=== PATIENT | female | born 2000 | race Caucasian/White ===

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

== ENCOUNTER 2020-02-04 20:01 | Observation (INO) | payer OTHER, SELFPAY ==
--- NOTE | 2020-02-04 20:01 | OBADM ---
This patient, Nadeen Jules, admitted to the OB room OB Post 116 for observation. Patient/family oriented to hospital policies and general routines including ID bracelet, bed and alarms, visiting hours, pain management, procedures, bathroom and other care routines, personal items, smoking policy, room service/diet, and visiting hours. Patient/Family are encouraged to report perceived risks to care and to ask questions if they do not understand what they are told or what they should do.
[2020-02-04 20:18] VITALS: BP 120/75; PULSE 117; RESP 20; TEMP 36.6
[2020-02-04 20:43] VITALS: BMI 34.2
[2020-02-04 21:01] LABS: Add Urine Microscopic? YES; Appearance Urine Cloudy (Clear); Bacteria Urine Trace /hpf; Bilirubin Urine Negative (Negative); Blood Urine Negative (Negative); Color Urine Yellow (Yellow); Glucose Urine UA Negative (Negative); Ketones Urine 1+ mg/dL (Negative); Leukocyte Esterase Ur 2+ LEU/UL (NEGATIVE); Mucus Urine Few /lpf; Nitrate Urine Negative (Negative); Protein Urine 1+ mg/dL (Negative); Specific Grav Ur 1.018 (1.001-1.035); Squamous Epithelial Cell Urine Many /hpf (Few); Urobilinogen Urine Negative mg/dL (<2.0); WBC Urine 51-75 /hpf (0-3)
[2020-02-04] MEDS: SODIUM CHLORIDE 0.9% IV 1,000 ML 999 ML IV CONT (22:28)
[2020-02-04 22:32] LABS: Amphetamine Screen Urine Negative (Negative); Barbiturate Screen Urine Negative (Negative); Benzodiazepines Screen Urine Negative (Negative); Cannabinoid Screen Urine Negative (Negative); Cocaine Screen Urine Negative (Negative); Methadone Screen Urine Negative (Negative); Opiate Screen Urine Negative (Negative); Phencyclidine Screen Urine Negative (Negative)
[2020-02-04 23:45] VITALS: BP 123/63; PULSE 77; TEMP 36.4
--- NOTE | 2020-02-05 03:10 | PM.OBTRLD ---
OB - Triage/Final Diagnosis Visit Information Reason for evaluation: threatened labor Evaluation Laboratory results: Laboratory Tests 02/04/20 02/04/20 20:49 20:49 Urine Color Yellow Urine Appearance Cloudy H Urine pH 6.0 Ur Specific Child[place] 1.018 Urine Protein 1+ H Urine Glucose (UA) Negative Urine Ketones 1+ H Ur Blood (Man) Negative Urine Nitrate Negative Urine Bilirubin Negative Urine Urobilinogen Negative Ur Leukocyte Esterase 2+ H Urine RBC 3-5 H Urine WBC 51-75 H Ur Squamous Epith Cells Many H Urine Bacteria Trace Urine Mucus Few H Urine Opiates Screen Negative Urine Methadone Screen Negative Ur Barbiturates Screen Negative Ur Phencyclidine Scrn Negative Ur Amphetamine Screen Negative U Benzodiazepines Scrn Negative Urine Cocaine Screen Negative U Cannabinoids Screen Negative Vital signs: Vital Signs - 24 hr 02/04/20 20:18 02/04/20 23:45 Temperature 97.8 F 97.6 F Pulse Rate 117 H 77 Respiratory Rate 20 Blood Pressure 120/75 123/63
[2020-02-05 03:26] VITALS: BP 114/53; PULSE 90; TEMP 36.6
[2020-02-05 07:42] VITALS: BP 87/55; PULSE 78
[2020-02-05 07:43] VITALS: BP 88/45; PULSE 79
[2020-02-05 07:44] VITALS: TEMP 36.3
[2020-02-05 08:01] VITALS: BP 107/52; PULSE 71
--- NOTE | 2020-02-05 08:52 | PC.NURSE ---
0745-Pt given discharge instructions. 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 Explained again that if she wants Dr.Dalla Singleton to deliver her, she needs to see him in the office so he can review her records and assess the pt. She stated again she will be seeing the other .
== END 2020-02-05 08:01 | disposition home or self-care (01) ==
PROVIDERS: Admitting Provider Obstetrics & Gynecology; Visit Provider Obstetrics & Gynecology
DX: O47.9 False labor, unspecified (principal); Z3A.00 Weeks of gestation of pregnancy not specified
CPT/HCPCS: 80307; 81001; 87086; 87088; G0378; G0379; J7030

== ENCOUNTER 2020-02-21 14:15 | Outpatient (CLI) | payer OTHER, SELFPAY ==
[2020-02-21 23:56] LABS: SARS-CoV-2 RNA PCR Negative
== END 2020-02-21 14:16 | disposition home or self-care (01) ==
DX: Z20.828 Contact with and (suspected) exposure to other viral communicable diseases (principal)
CPT/HCPCS: 87635; C9803; U0003

== ENCOUNTER 2020-02-28 03:11 | Emergency (ER) | payer OTHER, SELFPAY ==
[2020-02-28] VITALS (7 sets, daily range): BP systolic 102–138; BP diastolic 59–78; PULSE 63–107; RESP 19–24; TEMP 36.6; O2SAT 97–99
--- NOTE | ~2020-02-28 | CT_ITS ---
EXAMINATION: CTA chest PE protocol DATE: 02/28/2020 06:13 INDICATION: Chest pain, dyspnea. Recent section. TECHNIQUE: Computed tomography angiography (CTA) of the chest was performed with 100 mL Omnipaque-350 intravenous contrast timed to evaluate the pulmonary arteries. Coronal maximum intensity projection 3D-reconstructions were created by the technologist. Automated exposure control and iterative reconst ruction technique were employed. Exam dose: 672.94 mGy-cm total exam DLP. COMPARISON: 02/28/2020 CT pulmonary scan 02/28/2020 portable AP chest at 0352 hours FINDINGS: There is moderate opacification of the pulmonary arteries and no evidence of pulmonary embo lism. No thoracic aortic aneurysm or dissection. Heart size is within normal range. No pericardial or pleural effusion. No hilar or mediastinal mass lesion or lymphadenopathy. No pulmonary infiltrate or consolidation. IMPRESSION: No evidence of pulmonary embolism Reviewed, dictated and finalized at Location [facility]. Reviewed, dictated and finalized at location A.
--- NOTE | ~2020-02-28 | CT_ITS ---
EXAMINATION: CTA chest PE protocol DATE: 02/28/2020 04:41 INDICATION: Shortness of breath. Chest and neck pain. TECHNIQUE: Computed tomography angiography (CTA) of the chest was performed with 100 mL Omnipaque-350 intravenous contrast timed to evaluate the pulmonary arteries. Coronal maximum intensity projection 3D-reconstructions were created by the technologist. Automated exposure control and iterative reconst ruction technique were employed. Exam dose: 658.44 mGy-cm total exam DLP. COMPARISON: 02/28/2020 portable AP chest at 0352 hours FINDINGS: Evaluation for pulmonary emboli is limited due to streak artifact, suboptimal opacification and respiratory motion. No large or central pulmonary emboli are visualized. Distal ulnar arteries a re not optimally evaluated. No thoracic aortic aneurysm or dissection is evident. No hilar or mediastinal mass lesion or lymphade nopathy. Normal heart size. No pericardial or pleural effusion. Small sliding hiatal hernia. No pulmonary infiltrate or consolidation or pulmonary mass lesion. Minimal dependent bilateral lower lobe atelectasis. Included skeletal structures are unremarkable. IMPRESSION: Limited examination; no large or central pulmonary embolus is identified Reviewed, dictated and finalized at Location [facility]. Reviewed, dictated and finalized at location A. IMPRESSION: Limited examination; no large or central pulmonary embolus is iden tified
--- NOTE | ~2020-02-28 | XR_ITS ---
XR chest 1V portable DATE: 02/28/2020 03:50 INDICATION: Shortness of breath, dyspnea TECHNIQUE: Portable AP chest on 02/28/2020 at 0352 hours COMPARISON: None FINDINGS: Normal heart size. No hilar or mediastinal enlargement. No pulmonary infiltrate or consolid ation, pleural effusion or pulmonary vascular congestion or pneumothorax. Included skeletal structures are unremarkable. IMPRESSION: No active cardiopulmonary disease Reviewed, dictated and finalized at location A.
--- NOTE | 2020-02-28 03:13 | ED.GENADULT ---
HPI - General Adult General Chief complaint: Shortness of Breath/Dyspnea Stated complaint: post op pain Time Seen by Provider: 02/28/20 03:12 Source: patient Mode of arrival: wheelchair Limitations: no limitations History of Present Illness HPI narrative: Patient is a 19-year-old female , 4 days from section at [facility] in [facility], presenting for evaluation of chest pain and shortness of breath. Patient states that this evening, she has developed gradual worsening chest pain which radiates into her neck. She is reporting shortness of breath without fever or cough. No rhinorrhea. No loss of sense of taste or smell. No myalgias. Patient reports some generalized abdominal soreness, but no severe abdominal pain. No nausea or vomiting. 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 Patient had a normal postoperative recovery from section, no complications with this per the patient. Patient denies any heavy vaginal bleeding, dysuria. Related Data Home Medications Medication Instructions Recorded Confirmed acetaminophen 1,000 mg PO Q6H PRN 02/28/20 ferrous sulfate 325 mg PO BID 02/28/20 ketorolac 10 mg PO Q6H 02/28/20 morphine 15 mg PO Q4H PRN 02/28/20 sennosides-docusate sodium [Stool 2 tab-cap PO BID PRN 02/28/20 Softener-Stimulant Laxat] Allergies Allergy/AdvReac Type Severity Reaction Status Date / Time sertraline AdvReac Severe Other Verified 02/28/20 03:55 Review of Systems Review of Systems: Narrative: CONSTITUTIONAL: Denies fever, chills EYES: Denies visual changes ENT: Denies rhinorrhea, congestion, sore throat, or otalgia. CARDIOVASCULAR: Reports chest pain RESPIRATORY: Reporting dyspnea GASTROINTESTINAL: Denies abdominal pain, nausea, vomiting, or diarrhea. GENITOURINARY: Denies dysuria or hematuria. SKIN: Denies rash or itching. MUSCULOSKELETAL: Denies back pain, reports neck pain NEUROLOGIC: Denies headache, numbness, or weakness. [facility] Past Medical History Medical History (Updated 02/28/20 @ 07:08 by Hina Houser MD) Surgical History Surgical History (Updated 02/28/20 @ 03:23 by Hina Houser MD) H/O section Family History Family History (Updated 02/08/20 @ 14:34 by Arlette Putnam RN) Other Unknown family medical history Social History Social History (Updated 02/28/20 @ 03:23 by Hina Houser MD) Smoking status: Never smoker Substance use: former Living arrangements: with family Gender identity (if verbalized by the patient): Female Exam Narrative: Exam Narrative: GENERAL: Awake, alert, anxious appearing HEAD: Normocephalic, atraumatic. EYES: PERRLA and EOMI. ENT: Nares clear, no rhinorrhea or epistaxis. Mucous membranes moist. NECK: Supple. CHEST: Tachypneic, lung sounds are clear bilaterally without crackles, wheezing, no use of accessory muscles to breathe, no chest wall tenderness HEART: Tachycardic rate, sinus rhythm ABDOMEN:Non distended, surgical incision site in the lower abdomen clean, dry, intact, no discharge, no cellulitic changes, no erythema or warmth EXTREMITIES: Normal range of motion. Bilateral nonpitting edema to the shins SKIN: Pale, warm, dry, no rash. NEURO:No focal deficits. Alert and oriented x3 Course Vital Signs Vital signs: Vital Signs Temperature 36.6 C 02/28/20 03:16 Pulse Rate 107 H 02/28/20 03:16 Respiratory Rate 24 H 02/28/20 03:16 Blood Pressure 138/78 02/28/20 03:16 Pulse Oximetry 99 02/28/20 03:16 Temperature 36.6 C 02/28/20 03:16 Pulse Rate 63 02/28/20 06:30 Respiratory Rate 20 02/28/20 06:30 Blood Pressure 102/63 02/28/20 06:30 Pulse Oximetry 97 02/28/20 06:30 Medical Decision Making MDM Narrative Medical decision making narrative: Patient presented
--- NOTE | 2020-02-28 03:19 | ECG_ITS ---
Measurements Intervals [place] Rate: 83 P: 37 [place]: 138 QRS: 37 QRSD: 78 T: 4 QT: 328 QTc: 387 Interpretive Statements SINUS RHYTHM WITH SINUS ARRHYTHMIA BASELINE ARTIFACT- I, II, V2 NORMAL ECG Electronically Signed On 02-28-2020 6:53:45 CDT by Bernabe Rowell D.O.
[2020-02-28 03:27] LABS: Glucose Point of Care 76 (65-105)
[2020-02-28 03:40] LABS: Basophils Percent Auto 0.2 % (0.2-1.2); Eosinophils Absolute Auto 0.1 K/mm3 (0-0.3); Eosinophils Percent Auto 1.4 % (0-4.4); Hematocrit 28.3 % (37.0-47.0); Hemoglobin 9.5 g/dL (12.0-15.0); Immature Granulocyte Absolute 0.04 K/mm3 (0.00-0.031); Immature Granulocyte Percent A 0.4 % (0-0.5); Lymphocytes Absolute Auto 1.82 K/mm3 (0.9-3.2); Mean Corpuscular HGB Conc 33.6 g/dl (32-36); Mean Corpuscular Hemoglobin 29.7 pg (26-34); Mean Corpuscular Volume 88.4 fl (80-100); Mean Platelet Volume 10.9 fl (7.4-10.4); Monocytes Absolute Auto 0.8 K/mm3 (0.1-0.6); Monocytes Percent Auto 7.4 % (2.6-8.5); Neutrophils Absolute Auto 7.3 K/mm3 (1.3-6.7); Neutrophils Percent Auto 72.6 % (45.5-73.1); Platelet Count Result 208 k/mm3 (150-375); White Blood Count 10.1 K/mm3 (4.5-10.0)
[2020-02-28 03:40] LABS: Alveolar/Arterial O2 Gradient 3.3 mmHg; Carboxyhemoglobin 0.3 % THb (0-2.0); Device ROOM AIR; Fractional Inspired Oxygen 21 %; HCO3 ABG 17.8 mEq/l (22.0-26.0); Methemoglobin ABG 0.2 %THb (0-1.5); Modified Allen's Test Pass; Oxygen Content ABG 13.5 %vol (16.0-22.0); Oxygen Saturation ABG 98.5 % (95.0-100.0); Oxyhemoglobin 96.7 % THb (90.0-100.0); PCO2 ABG 25.7 mmHg (35.0-45.0); PO2 ABG 115.7 mmHg (80.0-100.0); PO2 FiO2 Ratio Arterial Blood 5.51 %; Reduced Hemoglobin 2.8 %THb (0-5.0); Site Drawn RIGHT RADIAL; Total Hemoglobin 9.8 g/dL (12.0-18.0); pH ABG 7.458 (7.350-7.450)
[2020-02-28] MEDS: ASPIRIN 81 MG CHEWABLE TABLET 324 MG PO (03:42)
[2020-02-28] MEDS: ONDANSETRON INJ 4 MG/2 ML VIAL IV PUSH (03:43)
[2020-02-28] MEDS: SODIUM CHLORIDE 0.9% IV 1,000 ML 999 ML IV CONT (03:48)
[2020-02-28] MEDS: MORPHINE SULFATE (*CRX) 4 MG/ML INJ 2 MG IV PUSH (03:49)
[2020-02-28 03:52] LABS: Alanine Aminotransferase 21 U/L (4-35); Albumin Level 3.3 g/dL (3.7-5.6); Alkaline Phosphatase 148 U/L (45-116); Anion Gap 8 mmol/L (8-16); Aspartate Amino Transferase 36 U/L (14-36); Bilirubin,Total 0.4 mg/dL (0.2-1.3); Blood Urea Nitrogen 10 mg/dL (8-21); Calcium 8.6 mg/dL (8.9-10.7); Carbon Dioxide 24 mmol/L (22-30); Chloride 108 mmol/L (98-107); Estimated CRCL calculation 145 ml/min; Estimated Glomerular Filt Rate > 60; Glucose 76 mg/dL (65-105); Potassium 3.9 mmol/L (3.4-5.0); Sodium 140 mmol/L (134-143); Uric Acid 5.4 mg/dL (3.0-5.9)
[2020-02-28 03:53] LABS: Lactic Acid Reflex 0.9 mmol/L (0.7-2.1); Partial Thromboplastin Time 29.3 SECONDS (22.3-36.8); Prothrombin Time 13.2 Seconds (11.1-14.7)
[2020-02-28 03:56] LABS: D Dimer 2.13 ug/mL (<0.48)
[2020-02-28 04:04] LABS: NT Pro B Type Natriuretic Pept 117 PG/ML (5-100); Troponin I < 0.012 ng/mL (0.000-0.034)
[2020-02-28 06:19] LABS: Add Urine Microscopic? YES; Appearance Urine Cloudy (Clear); Bacteria Urine Trace /hpf; Bilirubin Urine Negative (Negative); Blood Urine 3+ (Negative); Color Urine Yellow (Yellow); Glucose Urine UA Negative (Negative); Ketones Urine Negative (Negative); Leukocyte Esterase Ur 3+ LEU/UL (Negative); Mucus Urine Rare /lpf; Nitrate Urine Negative (Negative); Protein Urine 1+ mg/dL (Negative); RBC Urine 21-50 /hpf (0-2); Squamous Epithelial Cell Urine Many /hpf (Few); Transitional Epi Cells Urine Rare /hpf (None Seen); Urobilinogen Urine Negative mg/dL (<2.0); WBC Urine >75 /hpf
[2020-02-28 06:21] LABS: Specific Grav Ur 1.044 (1.001-1.035)
[2020-02-28 06:59] LABS: Troponin I < 0.012 ng/mL (0.000-0.034)
== END 2020-02-28 07:38 | disposition home or self-care (01) ==
PROVIDERS: Emergency Provider Emergency Medicine; PCP Internal Medicine
DX: O86.20 Urinary tract infection following delivery, unspecified (principal); O90.89 Other complications of the puerperium, not elsewhere classified; R07.89 Other chest pain
CPT/HCPCS: 36415; 36600; 71045; 71275; 80053; 81001; 82375; 82805; 82948; 83050; 83605; 83880; 84484; 84550; 85025; 85380; 85610; 85730; 86850; 86870; 86880; 86900; 86901; 86902; 86905; 86971; 87077; 87086; 87088; 87186; 93005; 96361; 96374; 96375; 99284; A9270; J0131; J2270; J2405; J7030; Q9967

== ENCOUNTER 2020-08-29 17:45 | Outpatient (CLI) | payer OTHER, SELFPAY ==
[2020-08-29 18:26] LABS: Beta HCG Quantitative < 2.39 mIU/ML
== END 2020-08-29 17:46 | disposition home or self-care (01) ==
LOC: ANHLAB 17:49
DX: Z32.00 Encounter for pregnancy test, result unknown (principal)
CPT/HCPCS: 36415; 84702

== ENCOUNTER 2021-08-30 01:16 | Emergency (ER) | payer OTHER, SELFPAY ==
[2021-08-30 01:19] VITALS: BP 149/48; PULSE 110; RESP 16; TEMP 36.2; O2SAT 97
--- NOTE | 2021-08-30 01:45 | ED.URI ---
HPI - URI/Sore Throat General Chief Complaint: Upper Respiratory Infection Stated Complaint: Sore throat, cough Time Seen by Provider: 08/30/21 01:34 Source: patient Mode of arrival: ambulatory Limitations: no limitations History of Present Illness HPI Narrative: 21-year-old female presents today with complaints of sore throat, cough, ear pressure, muffled hearing, sweats, chills that started yesterday. Patient denies using any medication for pain or fever. Patient denies nausea, vomiting, abdominal pain. Patient does endorse sick contact as son is here for similar symptoms. Patient states throat pain is so severe that she is unable to even eat pudding. Related Data Home Medications Medication Instructions Recorded Confirmed acetaminophen 1,000 mg PO Q6H PRN 02/28/20 ferrous sulfate 325 mg PO BID 02/28/20 ketorolac 10 mg PO Q6H 02/28/20 morphine 15 mg PO Q4H PRN 02/28/20 sennosides-docusate sodium [Stool 2 tab-cap PO BID PRN 02/28/20 Softener-Stimulant Laxat] Allergies Allergy/AdvReac Type Severity Reaction Status Date / Time sertraline AdvReac Severe Other Verified 02/28/20 03:55 Review of Systems Review of Systems: CONSTITUTIONAL: Unsure of fever, but endorses chills, and sweats. EYES: Denies visual changes, redness, or discharge. ENT: Sinus drainage, sore throat, muffled hearing. CARDIOVASCULAR: Denies chest pain, palpitations, or edema. RESPIRATORY: Cough, sinus drainage. Denies dyspnea. GASTROINTESTINAL: Denies abdominal pain, nausea, vomiting, or diarrhea. GENITOURINARY: Denies dysuria or hematuria. SKIN: Denies rash or itching. MUSCULOSKELETAL: Denies back pain, joint pain, or myalgia. NEUROLOGIC: Denies headache, numbness, dizziness, or weakness. PSYCHIATRIC: Denies anxiety or depression. [facility] Past Medical History Medical History Surgical History Surgical History H/O section Family History Family History Other Unknown family medical history Social History Social History Smoking status: Never smoker Substance use: former Gender identity (if verbalized by the patient): Female Exam Narrative: GENERAL: Well-appearing, well-nourished, and in no acute distress. HEAD: Normocephalic, atraumatic. EYES: PERRLA and EOMI. ENT: Pharyngeal erythema. Bilateral tympanic membranes cloudy. Nares clear, no rhinorrhea or epistaxis. Mucous membranes moist. NECK: Supple. No adenopathy or masses. No carotid bruits or JVD CHEST: Clear to auscultation. No respiratory distress. No wheezes rales or rhonchi HEART: Regular rate and rhythm. No murmur heard. Normal peripheral pulses. ABDOMEN: Soft, nontender, nondistended, normal active bowel sounds. EXTREMITIES: Normal range of motion. No edema. SKIN: Warm, moist, no rash. NEURO: No focal deficits. Alert and oriented x3. PSYCH: Normal mood and affect. Course Vital Signs Vital signs: Vital Signs Temperature 36.2 C L 08/30/21 01:19 Pulse Rate 110 H 08/30/21 01:19 Respiratory Rate 16 08/30/21 01:19 Blood Pressure 149/48 H 08/30/21 01:19 Pulse Oximetry 97 08/30/21 01:19 Temperature 36.2 C L 08/30/21 01:19 Pulse Rate 110 H 08/30/21 01:19 Respiratory Rate 16 08/30/21 01:19 Blood Pressure 149/48 H 08/30/21 01:19 Pulse Oximetry 100 08/30/21 02:22 MDM - URI/Sore Throat Differential Diagnosis Differential diagnosis: Likely upper respiratory infection, viral infection and influenza Lab Data Attestation: I reviewed the patient's lab results. Labs: Lab Results 08/30/21 Range/Units 02:03 SARS-CoV-2 RNA (RT-PCR) Negative Influenza A Screen Negative Reference Range: Negative Influenza B Screen
[2021-08-30 02:22] VITALS: O2SAT 100
[2021-08-30] MEDS: ACETAMINOPHEN 500 MG TABLET 1000 MG PO (02:53)
[2021-08-30 03:09] LABS: SARS-CoV-2 RNA PCR Negative
[2021-08-30 03:25] VITALS: BP 118/64; PULSE 77; RESP 16; O2SAT 100
== END 2021-08-30 03:29 | disposition home or self-care (01) ==
PROVIDERS: Emergency Provider Nurse Practitioner Family
DX: J06.9 Acute upper respiratory infection, unspecified (principal); Z20.822 Contact with and (suspected) exposure to COVID-19
CPT/HCPCS: 87081; 87804; 87880; 99283; A9270; C9803; U0003; U0005

== ENCOUNTER 2022-03-09 09:46 | Outpatient (CLI) | payer OTHER, SELFPAY | END 2022-03-09 09:47 | disposition home or self-care (01) | DX: Z32.00 Encounter for pregnancy test, result unknown (principal) | CPT/HCPCS: 36415; 84702 ==

== ENCOUNTER 2022-06-03 19:50 | Emergency (ER) | payer OTHER, SELFPAY ==
[2022-06-03] VITALS (10 sets, daily range): BP systolic 122–132; BP diastolic 61–67; PULSE 72–87; RESP 12–20; TEMP 36.7; O2SAT 95–100
--- NOTE | 2022-06-03 19:54 | ECG_ITS ---
Measurements Intervals [place] Rate: 90 P: 48 [place]: 131 QRS: 32 QRSD: 82 T: 8 QT: 336 QTc: 411 Interpretive Statements SINUS RHYTHM WITH SINUS ARRHYTHMIA OTHERWISE NORMAL ECG COMPARED TO ECG 02/28/2020 03:25:06 NO SIGNIFICANT CHANGES Electronically Signed On 06-04-2022 10:05:13 CIRCULATION SUPERVISOR by Beni Santiago M.D.
--- NOTE | 2022-06-03 21:06 | ED.GENADULT ---
HPI - General Adult General Chief complaint: Anxiety Stated complaint: Anxiety Time Seen by Provider: 06/03/22 20:45 Source: patient and RN notes reviewed Mode of arrival: ambulatory Limitations: no limitations History of Present Illness HPI narrative: This is a 22 year old female 18 weeks GA who presents for evaluation of a panic attack. She states she was at work when she developed chest tightness, heart racing and shortness of breath. She states this last for 20 minutes before it completely resolved. She also states she had lower abdominal cramping at that time but that has resolved as well. EMS was called and she states they performed an EKG. Her EKG showed sinus arrhythmia with a normal rate. She was told be EMS she was having likely panic attack. She states she needs nonstress test for her fetus. She gets care by a doctor that is 2 hours ago. She reports no significant issues with other than low blood pressure. She also reports URI symptoms. Her child was diagnosed with URI yesterday in ER Related Data Home Medications Medication Instructions Recorded Confirmed acetaminophen 500 mg tablet 1,000 mg PO Q6H PRN Pain 02/28/20 ferrous sulfate 325 mg (65 mg 325 mg PO BID 02/28/20 iron) tablet ketorolac 10 mg tablet 10 mg PO Q6H 02/28/20 morphine 15 mg immediate release 15 mg PO Q4H PRN Pain, Severe 02/28/20 tablet sennosides 8.6 mg-docusate sodium 2 tab-cap PO BID PRN Constipation 02/28/20 50 mg tablet (Stool Softener-Stimulant Laxative) Allergies Allergy/AdvReac Type Severity Reaction Status Date / Time sertraline AdvReac Severe Other Verified 02/28/20 03:55 Review of Systems Constitutional: Constitutional: Denies weakness ENT: Reports nasal congestion Cardiovascular: Cardiovascular: Reports chest pain, Denies syncope, Reports rapid heart rate, Denies irregular heart rhythm, Denies leg edema and Reports dyspnea Respiratory: Respiratory: Denies chest congestion, Denies hemoptysis, Denies excessive phlegm production and Denies dyspnea Gastrointestinal: Gastrointestinal: Denies abdominal pain, Denies hematochezia, Denies diarrhea and Denies vomiting Genitourinary: Genitourinary: Denies hematuria and Denies dysuria Musculoskeletal: Musculoskeletal: Denies joint swelling, Denies loss of height and Denies muscle weakness Neurologic: Denies syncope, Denies focal weakness and Denies weakness PMFSH Past Medical History Medical History Surgical History Surgical History H/O section Family History Family History Other Unknown family medical history Social History Social History (Updated 06/03/22 @ 21:16 by Janeen Rice MD) Tobacco type: e-cigarettes/vaping Alcohol intake: never Substance use: former Living arrangements: with family Gender identity (if verbalized by the patient): Female Exam Const: General: alert Nutritional Appearance: well nourished Orientation/consciousness: patient oriented x3 Limitations: no limitations Eyes: EOM: EOMs intact bilaterally Chest: Chest palpation & inspection: normal inspection of the chest Resp: Effort & Inspection: normal respiratory effort Auscultation: clear to auscultation bilaterally Cardio: Rate: regular rate Rhythm: regular rhythm Heart sounds: no murmurs GI: GI Palp: Yes Soft to palpation, No Tenderness to palpation present (GI), No Guarding due to palpation present (GI) and No Rigid due to palpation Auscultation: normal bowel sounds Course Reevaluation(s) Reevaluation #1: Patient has been resting comfortably. Symptoms likely anxiety. Troponin negative x 2. Patient was asymptomatic on arrival . PE less likely. FHT found. She denies abdominal pain in ER. Denies vaginal bleeding. SHe reports US showing I
[2022-06-03 21:20] LABS: Basophils Percent Auto 0.2 % (0.2-1.2); Eosinophils Percent Auto 0.1 % (0-4.4); Hematocrit 33.9 % (37.0-47.0); Hemoglobin 11.6 g/dL (12.0-15.0); Immature Granulocyte Absolute 0.05 K/mm3 (0.00-0.031); Immature Granulocyte Percent A 0.4 % (0-0.5); Lymphocytes Absolute Auto 1.81 K/mm3 (0.9-3.2); Lymphocytes Percent Auto 14.7 % (18.3-44.2); Mean Corpuscular HGB Conc 34.2 g/dl (32-36); Mean Corpuscular Hemoglobin 29.7 pg (26-34); Mean Corpuscular Volume 86.9 fl (80-100); Mean Platelet Volume 11.1 fl (7.4-10.4); Monocytes Absolute Auto 0.7 K/mm3 (0.1-0.6); Monocytes Percent Auto 5.3 % (2.6-8.5); Neutrophils Absolute Auto 9.8 K/mm3 (1.3-6.7); Neutrophils Percent Auto 79.3 % (45.5-73.1); Platelet Count Result 232 k/mm3 (150-375); Red Cell Distribution Width 12.3 % (11.5-14.5); White Blood Count 12.3 K/mm3 (4.5-10.0)
[2022-06-03 21:24] LABS: Alanine Aminotransferase 15 U/L (6-35); Alkaline Phosphatase 66 U/L (38-126); Anion Gap 8 mmol/L (8-16); Aspartate Amino Transferase 18 U/L (14-36); Bilirubin,Total 0.5 mg/dL (0.2-1.3); Blood Urea Nitrogen 7 mg/dL (7-17); Carbon Dioxide 24 mmol/L (22-30); Chloride 106 mmol/L (98-107); Estimated CRCL calculation 153 ml/min; Estimated Glomerular Filt Rate > 60; Glucose 78 mg/dL (65-110); Magnesium 1.7 mg/dL (1.6-2.3); Potassium 3.8 mmol/L (3.4-5.0); Sodium 138 mmol/L (137-145)
[2022-06-03 21:28] LABS: INR 1.2; Partial Thromboplastin Time 29.7 SECONDS (22.3-36.8); Prothrombin Time 14.7 Seconds (11.1-14.7)
[2022-06-03 21:36] LABS: Troponin I < 0.012 ng/mL (0.000-0.034)
[2022-06-03 22:08] LABS: Appearance Urine Cloudy (Clear); Bilirubin Urine Negative (Negative); Blood Urine Negative (Negative); Color Urine Yellow (Yellow); Glucose Urine UA Negative (Negative); Ketones Urine Trace mg/dL (Negative); Leukocyte Esterase Ur 1+ LEU/UL (Negative); Nitrate Urine Negative (Negative); Protein Urine Negative (Negative); Urobilinogen Urine 0.2 mg/dL (<2.0)
[2022-06-03 22:12] LABS: Add Urine Microscopic? YES; Bacteria Urine Trace /hpf; Mucus Urine Rare /lpf; Squamous Epithelial Cell Urine Many /hpf (Few)
[2022-06-03 22:12] LABS: Influenza A QL RT-PCR Negative (Negative); Influenza B QL RT-PCR Negative (Negative); SARS-CoV-2 RNA PCR Negative
[2022-06-03 22:57] LABS: Amphetamine Screen Urine Negative (Negative); Barbiturate Screen Urine Negative (Negative); Benzodiazepines Screen Urine Negative (Negative); Cannabinoid Screen Urine Positive (Negative); Cocaine Screen Urine Negative (Negative); Methadone Screen Urine Negative (Negative); Opiate Screen Urine Negative (Negative); Phencyclidine Screen Urine Negative (Negative)
--- NOTE | 2022-06-03 23:09 | PC.NURSE ---
Assumed care of pt. at this time. Report from SHARON Jiménez
[2022-06-04] VITALS: BP 120/80; PULSE 62; RESP 19; O2SAT 99
[2022-06-04 00:23] LABS: Troponin I < 0.012 ng/mL (0.000-0.034)
== END 2022-06-04 01:24 | disposition home or self-care (01) ==
PROVIDERS: Emergency Provider General Practice
DX: O99.341 Other mental disorders complicating pregnancy, first trimester (principal); Z3A.18 18 weeks gestation of pregnancy; R07.89 Other chest pain; Z20.822 Contact with and (suspected) exposure to COVID-19; F41.9 Anxiety disorder, unspecified
CPT/HCPCS: 36415; 80053; 80307; 81001; 83735; 84484; 85025; 85610; 85730; 87086; 87088; 87636; 93005; 99284

== ENCOUNTER 2022-06-24 13:15 | Emergency (ER) | payer OTHER, SELFPAY ==
[2022-06-24 13:34] VITALS: BP 122/68; PULSE 88; RESP 16; TEMP 36.4; O2SAT 98
--- NOTE | 2022-06-24 14:13 | PC.NURSE ---
1st encounter, pt comes to ED today for an evaluation for high blood pressure. pt states she is 21 weeks and was concerned about her BP at home. home reading of 134/108. pt states she had some abd cramping yesterday, denies any vaginal bleeding. pt denies any abd cramping today. pt in no acute distress or SOB, airway patent, breathing even/unlabored. pt A&Ox4 denies any chest pain or BERTHA at this time, gait steady.
[2022-06-24 14:42] VITALS: BP 110/62; PULSE 78
[2022-06-24 15:08] LABS: Basophils Percent Auto 0.2 % (0.2-1.2); Eosinophils Percent Auto 0.2 % (0-4.4); Hematocrit 31.2 % (37.0-47.0); Hemoglobin 10.8 g/dL (12.0-15.0); Immature Granulocyte Absolute 0.05 K/mm3 (0.00-0.031); Immature Granulocyte Percent A 0.5 % (0-0.5); Lymphocytes Absolute Auto 1.56 K/mm3 (0.9-3.2); Lymphocytes Percent Auto 15.9 % (18.3-44.2); Mean Corpuscular HGB Conc 34.6 g/dl (32-36); Mean Corpuscular Hemoglobin 30.9 pg (26-34); Mean Corpuscular Volume 89.1 fl (80-100); Mean Platelet Volume 10.9 fl (7.4-10.4); Monocytes Absolute Auto 0.5 K/mm3 (0.1-0.6); Neutrophils Absolute Auto 7.7 K/mm3 (1.3-6.7); Neutrophils Percent Auto 78.2 % (45.5-73.1); Platelet Count Result 174 k/mm3 (150-375); Red Cell Distribution Width 13.3 % (11.5-14.5); White Blood Count 9.8 K/mm3 (4.5-10.0)
[2022-06-24 15:13] LABS: Appearance Urine Slightly Cloudy (Clear); Bilirubin Urine Negative (Negative); Blood Urine Negative (Negative); Color Urine Yellow (Yellow); Glucose Urine UA Negative (Negative); Ketones Urine Negative (Negative); Leukocyte Esterase Ur 1+ LEU/UL (Negative); Nitrate Urine Negative (Negative); Protein Urine Negative (Negative); Specific Grav Ur 1.015 (1.001-1.035); Urobilinogen Urine 0.2 mg/dL (<2.0)
[2022-06-24 15:18] LABS: Alanine Aminotransferase 13 U/L (6-35); Albumin Level 3.7 g/dL (3.5-5.1); Alkaline Phosphatase 59 U/L (38-126); Anion Gap 6 mmol/L (8-16); Aspartate Amino Transferase 15 U/L (14-36); Bilirubin,Total 0.4 mg/dL (0.2-1.3); Blood Urea Nitrogen 6 mg/dL (7-17); Calcium 8.2 mg/dL (8.4-10.2); Carbon Dioxide 21 mmol/L (22-30); Chloride 106 mmol/L (98-107); Estimated Glomerular Filt Rate > 60; Glucose 89 mg/dL (65-110); Magnesium 1.8 mg/dL (1.6-2.3); Potassium 3.8 mmol/L (3.4-5.0); Sodium 133 mmol/L (137-145); Uric Acid 3.8 mg/dL (2.5-7.5)
[2022-06-24 15:19] LABS: Bacteria Urine Trace /hpf; Mucus Urine Rare /lpf; Squamous Epithelial Cell Urine Many /hpf (Few)
[2022-06-24 15:20] LABS: Add Urine Microscopic? YES
[2022-06-24 15:31] LABS: Non Pathogenic Casts Not Present
--- NOTE | 2022-06-24 16:10 | ED.GENADULT ---
HPI - General Adult General Chief complaint: Recheck/Abnormal Lab/Rx Stated complaint: high BP/ 21 weeks Time Seen by Provider: 06/24/22 14:31 Source: patient Mode of arrival: ambulatory Limitations: no limitations History of Present Illness HPI narrative: 22-year-old 3 para 2 AB about 21 weeks of gestation here with complaints of elevated blood pressure. Patient states her blood pressure was 130/108 also had lower abdominal pain which resolved by the time she came to the ER. She has no previous history of high blood pressure during this . She denies being lightheaded or dizzy, nausea or vomiting Onset (ago): hour(s) (4) Quality: aching Pain Consistency: now resolved Relieving factors: none Exacerbating factors: none Associated symptoms: denies other symptoms Related Data Home Medications Medication Instructions Recorded Confirmed acetaminophen 500 mg tablet 1,000 mg PO Q6H PRN Pain 02/28/20 ferrous sulfate 325 mg (65 mg 325 mg PO BID 02/28/20 iron) tablet ketorolac 10 mg tablet 10 mg PO Q6H 02/28/20 morphine 15 mg immediate release 15 mg PO Q4H PRN Pain, Severe 02/28/20 tablet sennosides 8.6 mg-docusate sodium 2 tab-cap PO BID PRN Constipation 02/28/20 50 mg tablet (Stool Softener-Stimulant Laxative) Allergies Allergy/AdvReac Type Severity Reaction Status Date / Time sertraline AdvReac Severe Other Verified 02/28/20 03:55 Review of Systems Review of Systems: All systems reviewed & are unremarkable except as noted in HPI and below Constitutional: Constitutional: Reports no additional constitutional complaints Eyes: Eyes: Reports no additional eye complaints ENT: Reports system reviewed and no additional complaints, except as documented Cardiovascular: Cardiovascular: Reports no additional cardiovascular complaints Respiratory: Respiratory: Reports no additional respiratory complaints Gastrointestinal: Gastrointestinal: Reports as per HPI Musculoskeletal: Musculoskeletal: Reports no additional musculoskeletal complaints [facility] Past Medical History Medical History Surgical History Surgical History H/O section Family History Family History Other Unknown family medical history Social History Social History (Updated 06/03/22 @ 21:16 by Janeen Rice MD) Tobacco type: e-cigarettes/vaping Alcohol intake: never Substance use: former Living arrangements: with family Gender identity (if verbalized by the patient): Female Exam Narrative: GENERAL: Well-appearing, well-nourished, and in no acute distress. HEAD: Normocephalic, atraumatic. EYES: PERRLA and EOMI. NECK: Supple. CHEST: Clear to auscultation. No respiratory distress. HEART: Regular rate and rhythm. No murmur heard. Normal peripheral pulses. ABDOMEN: Soft, nontender, nondistended, normal active bowel sounds. Gravid abdomen EXTREMITIES: Normal range of motion. No edema. SKIN: Warm, dry, no rash. NEURO: No focal deficits. Alert and oriented x3. PSYCH: Normal mood and affect. Course Course Emergency Course: Patient remained normotensive all through her stay here in the ER she is has no complaints informed her about lab work. Discussed with And Dwaine's nurse will follow-up in the office. Vital Signs Vital signs: Vital Signs Temperature 36.4 C 06/24/22 13:34 Pulse Rate 88 06/24/22 13:34 Respiratory Rate 16 06/24/22 13:34 Blood Pressure 122/68 06/24/22 13:34 Pulse Oximetry 98 06/24/22 13:34 Temperature 36.4 C 06/24/22 13:34 Pulse Rate 78 06/24/22 14:42 Respiratory Rate 16 06/24/22 13:34 Blood Pressure 110/62 06/24/22 14:42 Pulse Oximetry 98 06/24/22 13:34 Medical Decision Making Vital Signs Vital Signs: Vital Signs Temperature 36.4 C 0
== END 2022-06-24 16:43 | disposition home or self-care (01) ==
PROVIDERS: Emergency Provider Family Medicine
DX: R10.9 Unspecified abdominal pain (principal); O26.892 Other specified pregnancy related conditions, second trimester; Z3A.21 21 weeks gestation of pregnancy
CPT/HCPCS: 36415; 80053; 81001; 83735; 84550; 85025; 87086; 87088; 99283

== ENCOUNTER 2023-01-31 22:07 | Emergency (ER) | payer OTHER, SELFPAY ==
--- NOTE | ~2023-01-31 | CT_ITS ---
EXAMINATION: CT cervical spine wo con DATE: 02/01/2023 05:17 INDICATION: Neck injury. TECHNIQUE: Computed tomography (CT) of the cervical spine was performed without intravenous contrast. Automated exposure control and iterative reconstruction technique were employed. The dose-length pro duct was 475.16 mGy-cm. COMPARISON: None FINDINGS: There is mild kyphosis of cervical spine. Vertebral body heights and intervertebral disc he ights are normal. The facet joints are normal. No neural foraminal stenosis or central canal stenosis . IMPRESSION: 1. No fracture. Reviewed, dictated and finalized at location E. IMPRESSION: 1. No fracture.
[2023-01-31 22:16] VITALS: BP 141/82; PULSE 76; RESP 18; TEMP 36.3; O2SAT 100
[2023-02-01] VITALS (11 sets, daily range): BP systolic 121–138; BP diastolic 77–98; PULSE 80–84; RESP 16; TEMP 36.3; O2SAT 96–100
[2023-02-01] MEDS: IBUPROFEN 600 MG TABLET PO (05:00)
[2023-02-01] MEDS: ACETAMINOPHEN 325 MG TABLET 650 MG PO (05:01)
[2023-02-01] MEDS: LIDOCAINE 5% PATCH 1 PATCH TRANSDERM (05:01)
--- NOTE | 2023-02-01 05:33 | ED.NECK ---
HPI - Neck Pain/Injury General Chief Complaint: Neck Pain/Injury Stated Complaint: Neck pain, right shoulder pain Time Seen by Provider: 02/01/23 04:08 History of Present Illness HPI Narrative: Patient presents to the emergency department with posterior neck pain after a chair fell onto the back of her neck. She states she was sitting on the chair when she fell forward. Denies loss of consciousness however she has had a continued pain in the back of her neck that is worse with movement. She notes a area of tenderness and swelling across the back of her neck. Patient denies upper and lower extremity weakness and numbness. She has mild right shoulder discomfort with movement but full range of motion present on exam. Denies head trauma Related Data Home Medications Medication Instructions Recorded Confirmed acetaminophen 500 mg tablet 1,000 mg PO Q6H PRN Pain 02/28/20 ferrous sulfate 325 mg (65 mg 325 mg PO BID 02/28/20 iron) tablet ketorolac 10 mg tablet 10 mg PO Q6H 02/28/20 morphine 15 mg immediate release 15 mg PO Q4H PRN Pain, Severe 02/28/20 tablet sennosides 8.6 mg-docusate sodium 2 tab-cap PO BID PRN Constipation 02/28/20 50 mg tablet (Stool Softener-Stimulant Laxative) Allergies Allergy/AdvReac Type Severity Reaction Status Date / Time sertraline AdvReac Severe Other Verified 01/31/23 22:20 Review of Systems Review of Systems: Review of systems negative except for what is documented in the HPI PMFSH Past Medical History Medical History Surgical History Surgical History H/O section Family History Family History Other Unknown family medical history Social History Social History (Updated 06/03/22 @ 21:16 by Janeen Rice MD) Tobacco type: e-cigarettes/vaping Alcohol intake: never Substance use: former Living arrangements: with family Gender identity (if verbalized by the patient): Female Exam Narrative: GENERAL: Well-appearing, well-nourished, and in no acute distress. HEAD: Normocephalic, atraumatic. EYES: PERRLA and EOMI. ENT: Nares clear, no rhinorrhea or epistaxis. Mucous membranes moist. NECK: Supple. Linear swelling and tenderness perpendicular to spine CHEST: Clear to auscultation. No respiratory distress. HEART: Regular rate and rhythm. ABDOMEN: Soft, nontender, nondistended. EXTREMITIES: Normal range of motion. No edema. SKIN: Warm, dry, no rash. NEURO: No focal deficits. Alert and oriented x3. PSYCH: Normal mood and affect. Course Course Emergency Course: Due to exam findings of focal trauma CT neck ordered. CT spine negative for fracture. Patient is feeling better after medications. Will DC to home Vital Signs Vital signs: Vital Signs Temperature 36.3 C L 01/31/23 22:16 Pulse Rate 76 01/31/23 22:16 Respiratory Rate 18 01/31/23 22:16 Blood Pressure 141/82 H 01/31/23 22:16 Pulse Oximetry 100 01/31/23 22:16 Oxygen Delivery Room Air 01/31/23 22:16 Temperature 36.3 C L 02/01/23 01:50 Pulse Rate 80 02/01/23 01:50 Respiratory Rate 16 02/01/23 01:50 Blood Pressure 129/98 H 02/01/23 01:50 Pulse Oximetry 100 02/01/23 01:50 Oxygen Delivery Room Air 01/31/23 22:16 Discharge Plan Discharge Clinical Impression: Strain of neck muscle Qualifiers: Encounter type: initial encounter Qualified Code(s): S16.1XXA - Strain of muscle, fascia and tendon at neck level, initial encounter Injury of shoulder Qualifiers: Encounter type: initial encounter Laterality: right Qualified Code(s): S49.91XA - Unspecified injury of right shoulder and upper arm, initial encounter Patient Disposition: Home, Self-Care Condition: Stable Instructions: Spasmodic Torticollis (ED), Neck Pain (ED) Additional Instructions: Ib
== END 2023-02-01 06:34 | disposition home or self-care (01) ==
PROVIDERS: Emergency Provider Emergency Medicine
DX: S16.1XXA Strain of muscle, fascia and tendon at neck level, initial encounter (principal); S49.91XA Unspecified injury of right shoulder and upper arm, initial encounter; F17.290 Nicotine dependence, other tobacco product, uncomplicated; W07.XXXA Fall from chair, initial encounter
CPT/HCPCS: 72125; 99284; A9270

== ENCOUNTER 2023-10-28 11:58 | Outpatient (CLI) | payer OTHER, SELFPAY ==
[2023-10-28 13:08] LABS: Beta HCG Quantitative < 2.39 mIU/ML
== END 2023-10-28 11:59 | disposition home or self-care (01) ==
DX: N92.6 Irregular menstruation, unspecified (principal)
CPT/HCPCS: 36415; 84702

== ENCOUNTER 2023-11-25 14:35 | Outpatient (CLI) | payer OTHER, SELFPAY ==
--- NOTE | 2023-12-01 07:20 | WPDPFTINT ---
PFT Procedure Performed PFT Procedure Performed Spirometry with Pre/Post Bronchodilator Plethysmography (Lung Vol) Diffusing Cap (DLCO) Flow Vol Loop PFT Interpretation This is a pulmonary function test with pre and post-bronchodilator spirometry, plethysmography and diffusing capacity. The test was performed and results interpreted in accordance with the 2019 and 2005 ATS/ERS Task Force guidelines respectively using the Global Lung Function Initiative-2012 reference equations. Patient demonstrated good effort and cooperation. Reproducibility criteria were met. The quality of the pre bronchodilator spirometry maneuver was Grade B and post bronchodilator spirometry maneuver was Grade B. Findings: Spirometry: The contour of the expiratory flow tracing demonstrates a double hump pattern in 3 of 3 pre bronchodilator maneuvers and 2 of 3 post bronchodilator maneuvers. The contour the inspiratory flow tracing is normal. The pre bronchodilator FVC is 4.15 L, 118% predicted. The pre bronchodilator FEV1 is 2.86 L, 93% predicted. The pre bronchodilator FEV1: FVC ratio 69%. The post bronchodilator FVC is 4.08 L, representing a 2% decrease. The post bronchodilator FEV1 is 2.79 L, representing a 2% decrease. The post bronchodilator FEV1: FVC ratio is 68%. Plethysmography: The total lung capacity is 4.74 L, 100% predicted. The functional residual capacity is 1.65 L, 65% predicted. The residual volume is 0.59 L, 52% predicted. Diffusing capacity: The diffusing capacity unadjusted for hemoglobin and carboxyhemoglobin is 16.8, 67% predicted. The diffusing capacity adjusted for alveolar volume is 6.37, 124% predicted. Impression: There is a reproducible double hump pattern in the expiratory flow tracing. This has been described with a variable obstruction at the thoracic inlet as the narrowing moves from an intrathoracic to a relative extrathoracic location towards the end of expiration. There is a mild obstructive abnormality with a normal FEV1. There is no significant improvement after inhaling a single dose of albuterol. The lung volumes are normal. The diffusing capacity unadjusted for hemoglobin and carboxyhemoglobin is mildly decreased and normalizes when adjusted for alveolar volume. There are no prior studies for comparison
== END 2023-11-25 14:36 | disposition home or self-care (01) ==
DX: R94.2 Abnormal results of pulmonary function studies (principal)
CPT/HCPCS: 94060; 94726; 94729

== ENCOUNTER 2023-12-01 13:21 | Outpatient (CLI) | payer OTHER, SELFPAY ==
[2023-12-01 14:20] LABS: Add Urine Microscopic? YES; Appearance Urine Cloudy (Clear); Bacteria Urine 1+ /hpf; Bilirubin Urine Negative (Negative); Blood Urine 3+ (Negative); Color Urine Yellow (Yellow); Glucose Urine UA Negative (Negative); Ketones Urine Negative (Negative); Leukocyte Esterase Ur 2+ LEU/UL (Negative); Need Manual Microscopic Reviewed; Nitrate Urine Negative (Negative); Non Pathogenic Casts 0-2; Protein Urine Negative (Negative); Specific Grav Ur 1.005 (1.001-1.035); Squamous Epithelial Cell Urine Moderate /hpf (Few); Urobilinogen Urine 0.2 mg/dL (<2.0); WBC Urine 21-50 /hpf (0-3); pH Urine 6.5 (5.0-9.0)
== END 2023-12-01 13:22 | disposition home or self-care (01) ==
DX: R35.0 Frequency of micturition (principal)
CPT/HCPCS: 81001; 87086

== ENCOUNTER 2023-12-30 12:40 | Outpatient (CLI) | payer OTHER, SELFPAY ==
[2023-12-30] MEDS: METHACHOLINE CHLORIDE 18 ML VIAL.NEB INHALATION (14:47)
--- NOTE | 2023-12-30 15:06 | PCRCNOTE ---
AFTER POSITIVE METHACHOLINE TESTING AT LEVEL 2, I REACHED OUT TO ORDERING DR OFFICE, TO SPEAK TO ADAM ANTOINE, WHO ORDERED TEST. PHONE # FAX# LOCATED IN [facility]. I LEFT A MESSAGE TO HAVE HER CONTACT PFT LAB IN REGARDS TO PT POSITIVE TESTING AND ENSURE PT HAS FOLLOW-UP CARE DUE TO PT NOT HAVING PCP OR PULM. 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 [facility] STATES SHE WILL RETURN CALL ZAIN. I ALSO GAVE PT INFO IN REGARDS TO [facility] PROVIDERS. PT DOES HAVE ALBUTEROL INHALER
--- NOTE | 2023-12-30 15:32 | PCRCNOTE ---
RECEIVED CALL BACK FROM [employer], MICAELA FROM DR OFFICE FOR ADAM LOYA. SHE STATED SHE WILL RELAY INFO TO ADAM AND ENSURE PT RECEIVES SCRIPT FOR MAINTENANCE INHALER WELL REACHING OUT TO THE REFERRAL TEAM WITH THEIR OFFICES TO HELP PT ESTABLISH CARE CLOSER TO HOME. UNTIL THEN THEY WILL RESUME CARE
--- NOTE | 2023-12-31 13:29 | WPDMETH ---
Methacholine Procedure Perform Procedure Performed Methacholine Challenge Methacholine Challenge Methacholine Challenge: This is a methacholine challenge test. The test was performed and interpreted in accordance with the 2017 ERS technical standard, endorsed by the ATS, using the GLI 2012 reference equations. Testing was performed with increasing doses of nebulized methacholine following a quadrupling dosage protocol. The methacholine dose was delivered via the [employer] nebulizer using a 1-minutes tidal breathing protocol. The best post-methacholine FEV1 values were used to determine the change from the post diluent FEV1. The delivered dose of methacholine was used to calculate the provocative dose causing a 20% fall in FEV1 (PD20). Findings: Baseline FEV1 3.39 L, 106% predicted. Post diluent FEV1 3.15 L Post 1.81 mcg methacholine FEV1 3.24 L, increased 3% Post 7.26 mcg methacholine FEV1 1.75 L, decreased 44% Post albuterol nebulization FEV1 3.43 L Impression: The PD20 is 3.54 mcg which is characterized as marked airway hyperresponsiveness. There are no prior methacholine challenge studies for comparison
== END 2023-12-30 12:41 | disposition home or self-care (01) ==
LOC: ANHPFT 12:42
DX: R06.02 Shortness of breath (principal)
CPT/HCPCS: 94070; J7674